=== PATIENT | male | born 1980 ===

== ENCOUNTER 2017-02-19 11:47 | Emergency (ER) | payer SELFPAY ==
[2017-02-19] MEDS ORDERED: Silver Sulfadiazine 1% Cream (20 gm) TOP STA (12:42)
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
[2017-02-19 12:46] VITALS: BP 123/78; PULSE 77; RESP 20; TEMP 98.2; O2SAT 99
[2017-02-19] MEDS ORDERED: Tetanus/Diphtheria Toxoids 0.5 ml Syringe IM ONE ×2 (12:47→12:51)
[2017-02-19] MEDS ORDERED: Silver Sulfadiazine 1% Cream (20 gm) ONE (12:50)
== END 2017-02-19 12:55 | disposition home or self-care (01) ==
LOC: C.ER 11:47
DX: T25.211A Burn of second degree of right ankle, initial encounter (principal); T25.222A Burn of second degree of left foot, initial encounter; X10.2XXA Contact with fats and cooking oils, initial encounter; Y92.89 Other specified places as the place of occurrence of the external cause; Y99.8 Other external cause status; Z23 Encounter for immunization